=== PATIENT | female | born 2000 | race Caucasian/White ===

== ENCOUNTER 2018-03-08 00:28 | Emergency (ER) | payer OTHER | END 2018-03-08 01:40 | disposition home or self-care (01) | LOC: M ED 00:28 | DX: L30.9 Dermatitis, unspecified (principal); Z88.8 Allergy status to other drugs, medicaments and biological substances; Z79.890 Hormone replacement therapy; Z79.899 Other long term (current) drug therapy | CPT/HCPCS: 99283 ==